=== PATIENT | female | born 1995 | race Asian ===

== ENCOUNTER 2016-08-27 12:33 | Emergency (ER) | payer MEDICAID ==
[~2016-08-27 12:33] MED LIST: AUGMENTIN 875-1 EAC2 PO; BACTRIM DS TAB1 EAC2 PO; NORCO 5-325 TA1 EACH PO; PRENATAL MULTI1 EAC2 PO; ZOFRAN ODT4 MG PO
[2016-08-27] MEDS ORDERED: PRENATAL-U CAPS1 CAP PO (13:01)
[2016-08-27] MEDS ORDERED: CRANBERRY TABL1 EAC1 PO (13:01)
[2016-08-27] MEDS ORDERED: PLAQUENIL200 M1 PO (13:02)
[2016-08-27 13:46] LABS: BASO % 0.5 % (0-2); EOS % 7.5 % (0-7); EOSINOPHIL ABSOLUTE COUNT 0.7 tho/cmm (0.0-0.7); HCT-HEMATOCRIT 41.3 % (34.0-49.0); HGB-HEMOGLOBIN 14.4 gm/dl (12.0-15.5); IMMATURE GRANULOCYTES ABSOLUTE 0.02 tho/cmm (0-0.03); IMMATURE GRANULOCYTES PERCENT 0.2 % (0-0.3); LYMPH % 24.1 % (20-45); LYMPH ABSOLUTE COUNT 2.1 tho/cmm (0.8-4.5); MCH (MEAN CORPUSCULAR HGB) 28.5 pg (28.0-32.0); MCHC MEAN CORPUSCULAR HGB CONC 34.9 % (32.0-36.0); MCV (MEAN CELL VOLUME) 81.6 fl (82.0-96.0); MEAN PLATELET VOLUME 9.5 cmc (9.4-12.4); MONOCYTE ABSOLUTE COUNT 0.5 tho/cmm (0.0-1.2); NEUTROPHIL ABSOLUTE COUNT 5.5 tho/cmm (1.6-8.0); NEUTROPHIL-AUTOMATED 5.5 tho/cmm (1.6-8.0); NEUTROPHILS % 61.7 % (40-80); PLATELET COUNT 255 tho/cmm (150-450); RED BLOOD COUNT 5.06 mil/cmm (4.00-5.20); RED CELL DISTRIBUTION WIDTH 12.6 % (12.4-16.4); WHITE BLOOD COUNT 8.9 tho/cmm (4.0-10.0)
[2016-08-27 13:46] LABS: URINE BILIRUBIN NEGATIVE (NEG); URINE BLOOD NEGATIVE (NEG); URINE GLUCOSE (UA) NEGATIVE (NEG); URINE KETONE NEGATIVE (NEG); URINE LEUKOCYTE ESTERASE POSITIVE (NEG); URINE NITRITE NEGATIVE (NEG); URINE PH 6.5 (5.0-8.0); URINE PROTEIN SMALL (NEG); URINE SPECIFIC GRAVITY 1.015 (1.003-1.030)
[2016-08-27 13:47] LABS: URINE COLOR YELLOW
[2016-08-27 13:48] LABS: URINE APPEARANCE HAZY
[2016-08-27 13:56] LABS: URINE RBC RARE /[HPF] (0-5)
[2016-08-27 13:57] LABS: URINE BACTERIA 1+
[2016-08-27 14:01] LABS: ALB/GLOB RATIO 0.9 (0.8-2.0); ALBUMIN 3.7 g/dl (3.5-5.0); ALKALINE PHOSPHATASE 115 U/L (33-138); ALT/SGPT 21 U/L (12-78); ANION GAP 13 mmol/L (0-20); AST/SGOT 15 U/L (10-40); BILIRUBIN,TOTAL 0.2 mg/dl (0-1.5); BLOOD UREA NITROGEN 11 mg/dl (6-24); CALCIUM 8.9 mg/dl (8.5-10.5); CARBON DIOXIDE-VENOUS 24 mmol/L (22-32); CHLORIDE 109 mmol/l (96-110); CREATININE 0.69 mg/dl (0.50-1.10); GLUCOSE 83 mg/dL (70-110); POTASSIUM 3.9 mmol/L (3.7-5.1); SODIUM 142 mmol/L (135-145); eGFR VALUE FOR BLACK >90 mL/Min
[2016-08-27] MEDS ORDERED: BACTRIM DS TAB1 EAC2 PO (15:09)
[2016-08-27] MEDS ORDERED: PREDNISONE10 M1 PO (15:14)
[2016-08-27] MEDS ORDERED: NORCO 5-325 TA1 EACH PO (15:14)
[2017-01-17] MEDS ORDERED: PREDNISONE10 M1 PO (09:43)
[2017-01-18] MEDS ORDERED: KEFLEX250 M2 PO (09:14)
[2017-01-18] MEDS ORDERED: PROTONIX40 M2 PO (09:19)
== END 2016-08-27 15:34 ==
LOC: EDMED 12:33
PROVIDERS: Nurse Practitioner Family
DX: M25.50 Pain in unspecified joint (principal); N39.0 Urinary tract infection, site not specified; M32.9 Systemic lupus erythematosus, unspecified; Z90.49 Acquired absence of other specified parts of digestive tract; Z98.890 Other specified postprocedural states
CPT/HCPCS: J1885; J2270; J2405; J7030